=== PATIENT | female | born 1995 | race Caucasian/White ===

== ENCOUNTER 2017-05-02 17:46 | Emergency (ER) | payer MEDICAID ==
[2017-05-02 17:55] VITALS: BP 121/79
--- NOTE | 2017-05-02 18:10 | ED Physician Documentation ---
PD HPI SKIN - Stated complaint Stated Complaint: FEM - Chief complaint Chief Complaint: General - History obtained from History obtained from: Patient - History of Present Illness Timing - onset: How many days ago (3-4) Timing - details: Gradual onset, Still present Location: Other (both nipples (breast feeding 7 month old, without problems until several days ago; child does not have apparent oral pain/lesions).) Review of Systems Constitutional: denies: Fever, Chills Nose: denies: Rhinorrhea / runny nose, Congestion Throat: denies: Sore throat Respiratory: denies: Cough PD PAST MEDICAL HISTORY - Past Medical History Past Medical History: Yes Respiratory: Asthma - Past Surgical History Past Surgical History: No - Present Medications Home Medications: Ambulatory Orders Medication Instructions Recorded Confirmed Clotrimazole/Betamethasone Dip 1 applic TP TID #15 cream..g. 05/02/17 [Clotrimazole-Betamethasone Crm] - Allergies Allergies/Adverse Reactions: Allergies Allergy/AdvReac Type Severity Reaction Status Date / Time No Known Drug Allergies Allergy Verified 05/02/17 17:55 - Social History Does the pt smoke?: No Smoking Status: Never smoker Does the pt drink ETOH?: Yes Does the pt have substance abuse?: No - Immunizations Immunizations are current?: Yes - POLST Patient has POLST: No PD ED PE NORMAL - Vitals Vital signs reviewed: Yes - General General: Alert and oriented X 3, No acute distress, Well developed/nourished - Derm Derm: Normal color, Warm and dry, Other (both nipples with some redness and tenderness. No skin breakdown. No nipple discharge. The breast tissue does not have any focal hardness and there is not any redness of the skin of the breast otherwise. ) Results - Vitals Vitals: Oxygen O2 Source Room air PD MEDICAL DECISION MAKING - ED course Complexity details: considered differential (some redness and tenderness of the nipples, without mastitis findings nor discharge. Child without thrush. ), d/w patient Departure - Departure Disposition: Home, Self Care Clinical Impression: Yeast dermatitis Condition: Stable Record reviewed to determine appropriate education?: Yes Follow-Up: Kamari Kraft MD [Primary Care Provider] - Prescriptions: Clotrimazole/Betamethasone Dip [Clotrimazole-Betamethasone Crm] 1 applic TP TID #15 cream..g. Comments: This is likely a yeast infection of the nipples. We gave an oral antifungal tablet here and not often takes care of it. However I would supplement with a topical antifungal and steroid for the infection and swelling. I wrote a prescription for a combination but can also pick them up separately over-the- counter as hydrocortisone and Chlortrimazole. Use Tylenol or ibuprofen if needed for pains. Topical lidocaine can help with the pain as well. Apply the topical medicines after nursing and the nipple area clean with just water prior to nursing again. Discharge Date/Time: 05/02/17 18:44
[2017-05-02] MEDS ORDERED: LIDOCAINE OINTMENT 5% 35.44 GM TUBE TOP STA (18:28)
[2017-05-02] MEDS ORDERED: DEXAMETHASONE 10 MG/ML VIAL PO STA (18:28)
[2017-05-02] MEDS ORDERED: FLUCONAZOLE 100 MG TABLET PO STA (18:28)
[2017-05-02] MEDS ORDERED: IBUPROFEN 600 MG TABLET PO STA (18:28)
== END 2017-05-02 18:44 | disposition home or self-care (01) ==
LOC: ED 17:46
DX: L30.8 Other specified dermatitis (principal); B37.2 Candidiasis of skin and nail
CPT/HCPCS: 99283; A9270